=== PATIENT | female | born 1975 | race Caucasian/White ===

== ENCOUNTER 2023-11-04 14:40 | Outpatient (CLI) | payer OTHER, SELFPAY | END 2023-11-04 14:41 | disposition home or self-care (01) | PROVIDERS: PCP Family Medicine; Visit Provider Family Medicine | DX: Z13.220 Encounter for screening for lipoid disorders (principal); Z13.228 Encounter for screening for other metabolic disorders; Z11.59 Encounter for screening for other viral diseases; Z13.29 Encounter for screening for other suspected endocrine disorder | CPT/HCPCS: 80053; 80061; 84443; 86803 ==